=== PATIENT | female | born 1960 | race Two or more races ===

== ENCOUNTER → 2017-07-27 | Outpatient (CLI) | payer OTHER ==
--- NOTE | 2017-07-27 09:37 | RADRPT ---
PROCEDURE: CR Left Knee CLINICAL INDICATION: Pain TECHNIQUE: An AP, lateral, sunrise, and an oblique radiographs were submitted. COMPARISON: None FINDINGS: Osseous Structures: The osseous elements appear well mineralized and intact. Joint Spaces: The joint spaces are well maintained. A small joint effusion is evident.. Soft Tissues: The soft tissues appear unremarkable. IMPRESSION: 1. Small joint effusion 2. Otherwise, unremarkable left knee series. Physician Rhett Date Time Electronically viewed and signed by Vega Masterson Physician on 07/27/2017 09:37 RH/
--- NOTE | 2017-07-27 11:28 | HKNOTE ---
DATE OF SERVICE: 07/27/2017 CHIEF COMPLAINT: Left knee pain. HISTORY OF PRESENT ILLNESS: This is a 56-year-old female who was complaining of a 5-month history o f left knee pain. The pain is in the back of the knee. She has noticed increasing swelling in the back of the knee, it is painful. She has not had any previous treatment. She denies any history of trauma. She denies any locking, catching or instability. She does not use any assistive devices. She denies any groin or back pain. She has no other complaints. GAIT: Nonantalgic gait. No use of assistive device. LEFT KNEE EXAMINATION: Neutral alignment. Nontender over the medial and lateral joint lines, 0 to 130 degrees of painless range of motion, stable to varus valgus stress. Negative Aline's. Negat guillermina Rene, negative anterior drawer, negative posterior drawer. There is a cyst in the posterior aspect of the knee. It is nonpainful. It is mobile. It is nonten mary to palpation and mobile. MOTOR EXAMINATION: 5/5, hamstrings, tibialis anterior, gastroc soleus and extensor hallucis longus. IMAGING: X-rays, left knee, 4 views of the left knee demonstrate minimal medial joint space narrowi ng. There are no marginal osteophytes. There are no fractures or dislocations. IMPRESSION: This is a 56-year-old female with left knee Cordero cyst. PLAN: We will request authorization for an MRI of the left knee to further evaluate the mass in the posterior aspect of the knee. She can take ibuprofen for pain control. She will follow up followi ng her MRI to go over the results. Dictated By: ALEXANDRA COREAS/ALONDRA Conf#: [id number] DID#: [id number]
== END | disposition home or self-care (01) ==
LOC: HKI 09:29
PROVIDERS: ATTEND Orthopaedic Surgery Adult Reconstructive Orthopaedic Surgery
DX: M71.22 Synovial cyst of popliteal space [Baker], left knee (principal)
CPT/HCPCS: 73564; Z7500; G0463

== ENCOUNTER → 2017-08-11 | Outpatient (CLI) | payer OTHER ==
--- NOTE | 2017-08-11 15:43 | HKNOTE ---
DATE OF SERVICE: 08/11/2017 CHIEF COMPLAINT: Left knee pain. HISTORY OF PRESENT ILLNESS: This is a 56-year-old female with left knee pain. Patient has a left k nee Cordero cyst. She was referred for MRI of the left knee. She denies any locking, catching or ins tability. She does not use any assist devices. She has no other complaints. GAIT: Nonantalgic gait, reciprocal gait pattern. Left knee examination, neutral alignment. Nontender over the medial or lateral joint lines, 0-130 d egrees range of motion. Negative Aline's, negative Rene, negative anterior drawer. Cordero cys t posterior aspect of the knee and nontender, mobile. MRI left knee, there is a 5 x 3.7 x 3.3 cm septated popliteal cyst. It is unchanged from previous M RI. No meniscal, collateral or cruciate ligament tear is seen. IMPRESSION: A 56-year-old female with a left knee Cordero's cyst. PLAN: I discussed treatment options including injections, as well as surgical option. Patient is n ot interested in treatment at this time. She can take ibuprofen for pain control. She will follow up with me as needed in the future. Dictated By: ALEXANDRA COREAS/ALONDRA Conf#: [id number] DID#: [id number]
== END | disposition home or self-care (01) ==
LOC: HKI 13:25
PROVIDERS: ATTEND Orthopaedic Surgery Adult Reconstructive Orthopaedic Surgery
DX: M71.22 Synovial cyst of popliteal space [Baker], left knee (principal)
CPT/HCPCS: G0463